=== PATIENT | female | born 1985 | race Asian ===

== ENCOUNTER 2018-08-29 10:11 | Emergency (ER) | payer MEDICAID ==
[~2018-08-29] VITALS: Ht 154.9 cm; Wt 59.0 kg
[2018-08-29 12:38] VITALS: BP 115/71
== END 2018-08-29 12:39 | disposition home or self-care (01) ==
LOC: ER 10:11
DX: O26.893 Other specified pregnancy related conditions, third trimester (principal); M54.5 Low back pain; Z87.891 Personal history of nicotine dependence; Z3A.31 31 weeks gestation of pregnancy; Z59.0 Homelessness
CPT/HCPCS: 76805; 99284

== ENCOUNTER 2018-09-13 12:49 | Emergency (ER) | payer MEDICAID ==
[2018-09-13] MEDS ORDERED: BUPR1FIL3 SL (21:43)
== END 2018-09-13 13:06 | disposition left against medical advice (07) ==
LOC: ER 12:50
DX: Z76.0 Encounter for issue of repeat prescription (principal); Z53.21 Procedure and treatment not carried out due to patient leaving prior to being seen by health care provider

== ENCOUNTER 2018-09-13 20:52 | Emergency (ER) | payer MEDICAID ==
[~2018-09-13] VITALS: Ht 154.9 cm; Wt 56.0 kg
[2018-09-13] MEDS ORDERED: BUPR1FIL3 SL (21:43)
[2018-09-13 21:51] VITALS: BP 136/78
== END 2018-09-13 21:54 | disposition home or self-care (01) ==
LOC: ER 20:53
DX: F11.20 Opioid dependence, uncomplicated (principal); F17.200 Nicotine dependence, unspecified, uncomplicated; Z76.0 Encounter for issue of repeat prescription; Z79.899 Other long term (current) drug therapy
CPT/HCPCS: 99283

== ENCOUNTER 2018-10-14 21:36 | Emergency (ER) | payer MEDICAID ==
[~2018-10-14] VITALS: Ht 154.9 cm; Wt 53.0 kg
[~2018-10-14 21:36] MED LIST: BUPR1FIL3 SL
[2018-10-14 21:51] VITALS: BP 145/91
[2018-10-15] MEDS ORDERED: LIDOcaine 5% patch TP ONE (00:20)
[2018-10-15] MEDS ORDERED: ibuprofen tablet 400 MG TABLET PO ONE (00:20)
[2018-10-15] MEDS ORDERED: AZIT-63 PO (00:42)
[2018-10-15] MEDS ORDERED: azithromycin 250mg tablet PO ONE (00:45)
== END 2018-10-15 00:57 | disposition home or self-care (01) ==
LOC: ER 21:37
DX: J18.9 Pneumonia, unspecified organism (principal)
CPT/HCPCS: 71045; 99283; 99284